=== PATIENT | male | born 1955 | race Caucasian/White ===

== ENCOUNTER 2021-04-10 10:29 | Outpatient (CLI) | payer MEDICARE, SELFPAY ==
--- NOTE | ~2021-04-10 | US_ITS ---
EXAMINATION: US aorta [facility] DATE: 04/10/2021 10:57 INDICATION: Abdominal aortic aneurysm screening. Risk factor of obesity and atherosclerosis. TECHNIQUE: Grayscale, color Doppler, and pulsed Doppler images of the aorta and common iliac arteries were obtained. COMPARISON: None. FINDINGS: The proximal aorta measures 2.1 cm. The mid aorta measures 2.2 cm. The distal aorta measures 1.7 cm. The right common iliac artery measures 1.1 cm. The left common iliac artery measures 1.1 cm. IMPRESSION: 1. Normal caliber abdominal aorta. Reviewed, dictated and finalized at location A.
--- NOTE | 2021-04-10 11:14 | ECG_ITS ---
Measurements Intervals [place] Rate: 61 P: 16 MT: 191 QRS: 87 QRSD: 102 T: 69 QT: 389 QTc: 395 Interpretive Statements SINUS RHYTHM INCOMPLETE RIGHT BUNDLE BRANCH BLOCK BORDERLINE ECG Electronically Signed On 04-10-2021 11:39:29 CDT by Todd Moore D.O.
== END 2021-04-10 10:30 | disposition home or self-care (01) ==
PROVIDERS: PCP Family Medicine; Visit Provider Family Medicine
DX: Z13.6 Encounter for screening for cardiovascular disorders (principal); Z87.891 Personal history of nicotine dependence; I45.10 Unspecified right bundle-branch block
CPT/HCPCS: 76706; 93005

== ENCOUNTER 2022-06-25 08:15 | Outpatient (CLI) | payer MEDICARE, SELFPAY ==
--- NOTE | ~2022-06-25 | NM_ITS ---
EXAMINATION: NM nuvia stress w perfusion DATE: 06/25/2022 10:52 INDICATION: Dyspnea TECHNIQUE: Rest images were obtained following intravenous administration of 9.3 mCi Tc99m tetrofosmi n (Myoview). The patient was infused intravenously with Lexiscan (Regadenoson). Then, 28.4 mCi Tc99m tetrofosmin (Myoview) was administered intravenously, and stress images were obtained in supine posit ion. Repeat post stress images were obtained in prone position. Data was reconstructed into short axi s and horizontal and vertical long axis SPECT images. Gated SPECT images were also obtained. COMPARISON: None. FINDINGS: There is some likely attenuation artifact along the anterior wall which significant change in position on the post stress images obtained in prone and supine positions. No perfusion defects in common between the prone post stress imaging to suggest ischemia or infarct. Mild increased left ve ntricular end-diastolic volume of 183 mm. Normal left ventricular wall motion and ejection fraction. Left ventricular ejection fraction measures 60%. IMPRESSION: 1. Normal myocardial perfusion at rest and during stress. 2. Mild left ventricular enlargement with calculated end-diastolic volume of 183 mm. 3. Normal left ventricular wall motion and ejection fraction measuring 60%. Reviewed, dictated and finalized at location B. IMPRESSION: 1. Normal myocardial perfusion at rest and during stress. 2. Mild left ventricular enlargement with calculated end-diastolic volume of 18 3 mm. 3. Normal left ventricular wall motion and ejection fraction measuring 60%.
--- NOTE | 2022-06-25 08:48 | EST_ITS ---
Patient Info Name: Wing Torres Age: 66 years : 1955 Gender: Male Ht: 73 in Wt: 330 lbs BSA: 2.84 m2 Exam Date: 06/25/2022 9:39 AM Exam Location: [facility] Stress Patient Status: Outpatient Admit Date: 06/25/2022 Staff Ordering Physician: Viridiana Mcnally MD Attending Provider: Viridiana Mcnally MD Exercise Technologist: Mario Cameron RDCS, RT Exercise Physician: Todd Moore DO Exam Type: CA stress nuvia w NM Study Info A regadenoson stress test was performed. Summary 1. 1. Negative lexiscan stress test for ischemic ST changes by ECG criteria. 2. 2. Baseline hypertension. 3. 3. Nuclear scan to follow and will be reported separately. Please correlate with it. 4. 4. Patient informed of the above results. Protocol: Lexiscan Stress ECG Details Stage: REST Duration (min): 2 min : 33 sec HR (bpm): 57 SBP (mmHg): 143 DBP (mmHg): 78 Stage: REST Duration (min): 11 min : 52 sec HR (bpm): 60 SBP (mmHg): 143 DBP (mmHg): 78 Stage: STAGE 1 Duration (min): 1 min : 0 sec HR (bpm): 70 SBP (mmHg): 139 DBP (mmHg): 77 Stage: RECOVERY Duration (min): 1 min : 0 sec HR (bpm): 83 SBP (mmHg): 139 DBP (mmHg): 77 Stage: RECOVERY Duration (min): 2 min : 0 sec HR (bpm): 73 SBP (mmHg): 139 DBP (mmHg): 77 Stage: RECOVERY Duration (min): 3 min : 0 sec HR (bpm): 68 SBP (mmHg): 143 DBP (mmHg): 71 Stage: RECOVERY Duration (min): 3 min : 15 sec HR (bpm): 68 SBP (mmHg): 143 DBP (mmHg): 71 Rest HR: 60 bpm Peak HR: 85 bpm Rest Sys BP: 143 mmHg Peak Sys BP: 143 mmHg Max Pred HR: 154 bpm % Max Pred HR: 55 % Target HR: 131 bpm Max RPP: 12,155 bpm*mmHg Termination Reason: Completed protocol Cardiac Symptoms: Shortness of breath Total Time: 1 min : 0 sec Rest Phillips BP: 78 mmHg Peak Phillips BP: 71 mmHg Total Dose: 0.4 mg Resting ECG Sinus rhythm, IRBBB. Stress ECG No ST changes. Arrhythmias None. Report Signatures
== END 2022-06-25 08:16 | disposition home or self-care (01) ==
PROVIDERS: PCP Family Medicine; Visit Provider Family Medicine
DX: R06.09 Other forms of dyspnea (principal)
CPT/HCPCS: 78452; 93017; A9502; J2785

== ENCOUNTER 2022-07-01 10:34 | Outpatient (CLI) | payer MEDICARE, SELFPAY ==
--- NOTE | ~2022-07-01 | XR_ITS ---
EXAMINATION: XR chest 2V DATE: 07/01/2022 10:54 INDICATION: Intermittent shortness of breath TECHNIQUE: PA and lateral views of the chest are obtained. COMPARISON: None available FINDINGS: The lungs are free of acute opacities. No pleural effusion or pneumothorax. The cardiomedia stinal silhouette is normal. There are bridging osteophytes at multiple levels in the spine, consiste nt with diffuse idiopathic skeletal hyperostosis (DISH). IMPRESSION: 1. No acute cardiopulmonary abnormality. Reviewed, dictated and finalized at location A.
== END 2022-07-01 10:35 | disposition home or self-care (01) ==
PROVIDERS: PCP Family Medicine; Visit Provider Family Medicine
DX: R06.09 Other forms of dyspnea (principal)
CPT/HCPCS: 71046

== ENCOUNTER 2022-07-30 08:23 | Outpatient (CLI) | payer MEDICARE, SELFPAY ==
--- NOTE | 2022-07-30 08:48 | ECHO_ITS ---
Patient Info Name: Wing Torres Age: 66 years : 1955 Gender: Male Ht: 73 in Wt: 330 lbs BSA: 2.84 m2 HR: 62 bpm BP: 162 / 94 mmHg Technical Quality: Good Exam Date: 07/30/2022 9:20 AM Exam Location: [facility] Pulmonary Patient Status: Inpatient Admit Date: 07/30/2022 Staff Ordering Physician: Soheila Shell PA-C Conference Manager: Андрей Waldron RDCS Attending Provider: Soheila Shell PA-C Exam Type: CA echo doppler color flow Study Info Indications R06.02 - Shortness of breath Complete two-dimensional, color flow and Doppler transthoracic echocardiogram is performed. Summary 1. Complete two-dimensional, color flow and Doppler transthoracic echocardiogram is performed. 2. Left ventricular chamber dimension is normal. 3. Left ventricular systolic function is normal, estimated at 60-65%. 4. There is mildly increased left ventricular wall thickness. 5. The left ventricular diastolic function is abnormal. 6. E/e' 28 is significantly elevated. 7. Left atrial chamber dimension is severely enlarged. 8. There is moderate aortic valve sclerosis. 9. The mitral valve has moderately calcified annulus. Left Ventricle E/e' 28 is significantly elevated. Left ventricular chamber dimension is normal. Left ventricular systolic function is normal, estimated at 60-65%. There is mildly increased left ventricular wall thickness. The left ventricular diastolic function is abnormal. Right Ventricle Right ventricular chamber dimension is normal. Right ventricular systolic function is normal. Left Atria Left atrial chamber dimension is severely enlarged. Right Atria Right atrial chamber dimension is normal. Aortic Valve The aortic valve is trileaflet. There is moderate aortic valve sclerosis. There is no aortic valve stenosis. There is no aortic valve regurgitation. Pulmonic Valve There is no pulmonic regurgitation. Mitral Valve The mitral valve has moderately calcified annulus. There is no mitral valve stenosis. There is no mitral valve regurgitation. Tricuspid Valve There is no tricuspid valve regurgitation. Pericardium/Pleural There is no pericardial effusion. Inferior Vena Cava Normal inferior vena cava with >50% collapse upon inspiration consistent with normal right atrial pressure, 5 mmHg. Aorta The aortic root size at the sinus of Valsalva is normal. Left Ventricular Outflow Tract Name Value Normal LVOT 2D LVOT Diameter 2.2 cm LVOT Doppler LVOT Peak Gradient 8 mmHg LVOT Mean Gradient 5 mmHg LVOT VTI 34 cm LVOT VTI/AV VTI Ratio 1.2 LVOT Stroke Volume 134 ml LVOT CO 7.7 l/min LVOT CI 2.7 l/min/m2 Mitral Valve Name Value Normal MV Doppler
--- NOTE | 2022-07-30 12:22 | WPDPFTINT ---
PFT Procedure Performed PFT Procedure Performed Spirometry with Pre/Post Bronchodilator Plethysmography (Lung Vol) Diffusing Cap (DLCO) Flow Vol Loop PFT Interpretation This is a pulmonary function test with pre and post-bronchodilator spirometry, plethysmography and diffusing capacity. The test was performed and results interpreted in accordance with the 2019 and 2005 ATS/ERS Task Force guidelines respectively using the Global Lung Function Initiative-2012 reference equations. Patient demonstrated good effort and cooperation. Reproducibility criteria were met. The quality of the pre bronchodilator spirometry maneuver was Grade A and post bronchodilator spirometry maneuver was Grade A. Findings: Spirometry: the contour the inspiratory and expiratory flow tracing are normal. The pre bronchodilator FVC is 4.55 L, 94% predicted. The pre bronchodilator FEV1 is 3.12 L, 85% predicted. The pre bronchodilator FEV1: FVC ratio 69%. The post bronchodilator FVC is 4.52 L, representing 1% decrease. The post bronchodilator FEV1 is 3.31 L, representing a 6% increase. The post bronchodilator FEV1: FVC ratio 73%. Plethysmography: The total lung capacity is 7.51 L, 99% predicted. The functional residual capacity is 4.42 L, 110% predicted. The residual volume is 2.85 L, 113% predicted. Diffusing capacity: The diffusing capacity unadjusted for hemoglobin and carboxyhemoglobin is 28.0, 99% predicted. The diffusing capacity adjusted for alveolar volume is 4.96, 128% predicted. Impression: The spirometry is normal without evidence of an obstructive abnormality. There is no significant improvement after inhaling a single dose of albuterol. The lung volumes are normal. The diffusing capacity is normal. There are no prior studies for comparison
== END 2022-07-30 08:24 | disposition home or self-care (01) ==
LOC: ANHCARD 08:25
PROVIDERS: PCP Family Medicine; Visit Provider Physician Assistant
DX: R06.09 Other forms of dyspnea (principal)
CPT/HCPCS: 93306; 94060; 94726; 94729

== ENCOUNTER 2022-10-03 02:19 | Day surgery (SDC) | payer MEDICARE, SELFPAY ==
[2022-10-02 13:54] VITALS: BMI 43.6
[2022-10-03] VITALS (15 sets, daily range): BP systolic 105–133; BP diastolic 64–78; PULSE 55–70; RESP 12–18; TEMP 36.4–36.9; O2SAT 95–98; BMI 43.6
[2022-10-03 07:23] LABS: Basophils Absolute Auto 0.1 K/mm3 (0.0-0.1); Basophils Percent Auto 0.7 % (0.2-1.2); Eosinophils Absolute Auto 0.2 K/mm3 (0-0.3); Eosinophils Percent Auto 3.2 % (0-4.4); Hemoglobin 17.3 g/dL (14.0-18.0); Immature Granulocyte Absolute 0.02 K/mm3 (0.00-0.031); Immature Granulocyte Percent A 0.3 % (0-0.5); Lymphocytes Absolute Auto 2.11 K/mm3 (0.9-3.2); Lymphocytes Percent Auto 29.6 % (18.3-44.2); Mean Corpuscular HGB Conc 34.6 g/dl (32-36); Mean Corpuscular Hemoglobin 33.5 pg (26-34); Mean Corpuscular Volume 96.9 fl (80-100); Mean Platelet Volume 9.4 fl (7.4-10.4); Monocytes Absolute Auto 0.8 K/mm3 (0.1-0.6); Monocytes Percent Auto 10.5 % (2.6-8.5); Neutrophils Percent Auto 55.7 % (45.5-73.1); Platelet Count Result 224 k/mm3 (150-375); Red Blood Count 5.16 M/mm3 (4.6-6.20); Red Cell Distribution Width 11.9 % (11.5-14.5); White Blood Count 7.1 K/mm3 (4.5-10.0)
[2022-10-03 07:33] LABS: Prothrombin Time 13.1 Seconds (11.1-14.7)
[2022-10-03 07:37] LABS: Anion Gap 10 mmol/L (8-16); Blood Urea Nitrogen 17 mg/dL (9-20); Calcium 9.1 mg/dL (8.4-10.2); Carbon Dioxide 22 mmol/L (22-30); Chloride 106 mmol/L (98-107); Estimated CRCL calculation 93 ml/min; Estimated Glomerular Filt Rate > 60; Glucose 105 mg/dL (65-110); Sodium 138 mmol/L (137-145)
--- NOTE | 2022-10-03 08:43 | WPDHPUPDATE1 ---
History and Physical Update Update Date/Time: 10/03/22 08:43 History and Physical has been reviewed, including an updated exam of the patient. There are NO changes in the patient's condition. Risks, benefits, and alternatives have been discussed and questions answered. Patient agrees to proceed with procedure.
--- NOTE | 2022-10-03 08:44 | WPDMODSED ---
Moderate Sedation Note-Pt Data Patient Data Diagnosis: Stable angina, abnormal CT coronary angiogram Present Complaint: none Procedure to be performed/Plan: left heart catheterization with selective left and right coronary angiography with left ventriculography and hemodynamics Allergies Allergy/AdvReac Type Severity Reaction Status Date / Time No Known Allergies Allergy Verified 07/09/22 14:00 Home Medications Medication Instructions Recorded Confirmed Type amlodipine 5 mg tablet 5 mg PO DAILY #90 tabs 07/29/22 10/03/22 Rx lisinopril 5 mg tablet 5 mg PO DAILY 09/18/22 10/03/22 History esomeprazole magnesium 20 mg 20 mg PO DAILY 10/02/22 10/03/22 History capsule,delayed release (Nexium) Current Medications: Active Medications Sodium Chloride (Normal Saline Iv) 500 mls @ 100 mls/hr IV CONT .Q5H ANJALI Sedation/Anesthesia: No previous sedation/anesthesia problems (including family history). [facility] Past Medical History Medical History Complex sleep apnea syndrome Environmental allergies GERD without esophagitis Sleep disorder Family History Family History Mother Diabetes mellitus Father Asthma Family history of cardiovascular disease, Onset Age: 82 Other Family history of malignant neoplasm of breast in first degree relative Family history of malignant neoplasm of ovary Social History Social History Smoking status: Former smoker Smoking end date: 09/15/80 Alcohol intake: current Drinks per week: 15 Substance use: never Substance use type: does not use Living arrangements: alone Gender identity (if verbalized by the patient): Male Spiritual care concerns: No Mod Sed Physical Exam Physical Exam Pre Procedural Exam: Normal: Appearance, Eyes, Ears, Nose, Neck ( supple, normal range of motion), Throat ( posterior hypopharynx clear, nonerythematous), Airway ( normal anatomy, no obstruction), Lungs ( clear to auscultation bilaterally), Heart Size, Heart Rate, Heart Rhythm, Neuro Exam, Abdomen, Liver, Extremities and Skin Hours since solid foods: 12 Hours since liquid intake: 12 Mallampati Classification: class II Internal Medicine - PN: Obj Da Vital Signs Vital Signs: Vital Signs - 24 hr 10/03/22 07:15 Temperature 36.4 C L Pulse Rate 69 Respiratory Rate 15 Blood Pressure 130/68 Pulse Oximetry 98 Oxygen Delivery Room Air Meds/Results Medications: Active Medications Generic Name Dose Route Start Last Admin Trade Name Sasha PRN Reason Stop Dose Admin Sodium Chloride 500 mls @ 100 mls/hr 10/03/22 07:00 Normal Saline Iv IV CONT .Q5H ANJALI Labs 10/03/22 07:15 10/03/22 07:15 Labs: Laboratory Results - last 24 hr 10/03/22 10/03/22 10/03/22 07:14 07:15 07:15 WBC 7.1 RBC 5.16 Hgb 17.3 Hct 50.0 MCV 96.9 MCH 33.5 MCHC 34.6 RDW 11.9 Plt Count 224 MPV 9.4 Immature Gran % (Auto) 0.3 Neut % (Auto) 55.7 Lymph % (Auto) 29.6 Glenn % (Auto) 10.5 H Eos % (Auto) 3.2 Baso % (Auto) 0.7 Lymph # (Auto) 2.11 Glenn # (Auto) 0.8 H Eos # (Auto) 0.2 Baso # (Auto) 0.1 Abs Immat Gran (auto) 0.02 Absolute Neuts (auto) 4.0 Absolute Nucleated RBC 0.0 Nucleated RBC % 0.0 PT 13.1 INR 1.0 Sodium 138 Potassium 4.0 Chloride 106 Carbon Dioxide 22 Anion Gap 10 BUN 17 Creatinine 1.00 Estim Creat Clear Calc 93 Estimated GFR > 60 Glucose 105 Calcium 9.1 ASA Classification/Sedation ASA Classification/Sedation ASA Class: IV Emergent: No Risks: Risks, benefits and alternatives explained and patient/family accepted plan for sedation. Patient re-evaluated immediately prior to sedation.
--- NOTE | 2022-10-03 09:58 | PM.OP ---
Procedure Note - Brief Procedure Note - Brief Date of procedure: 10/03/22 Pre-op diagnosis: Abnormal CTA, Angina stable angina, abnormal CT coronary angiogram Procedure performed: left heart catheterization with selective left and right coronary angiography with left ventriculography and hemodynamics Description of procedure: BRIEF HISTORY OF PRESENT ILLNESS: Patient is a pleasant 66-year-old male morbid obesity, hypertension, SURAJ on ASV, history of remote tobacco abuse with complaints of progressive fatigue, exertional dyspnea and chest discomfort who underwent noninvasive ischemic evaluation which did not reveal reversible ischemia with preserved EF yet given ongoing symptoms was referred for CT coronary angiogram which revealed greater than 75% proximal LAD stenosis. Given persistence of his symptoms he was then referred for coronary angiography for delineation of his coronary anatomy. PROCEDURES PERFORMED: 1. Left heart catheterization 2. Selective left and right coronary angiography 3. Left ventriculography and hemodynamics 4. Moderate/conscious sedation administration CATHETERS UTILIZED: Left coronary system- 5 Marshallese JL4 catheter Right coronary system- 5 Marshallese JR4 catheter Left ventriculography and hemodynamics- 5 Marshallese angled pigtail catheter PROCEDURE IN DETAIL: After verbal and written informed consent was obtained the patient, risks, benefits, and alternatives explained in detail the patient agreed to proceed with the plan of care as outlined above. The patient was subsequently brought to the cardiac catheterization lab, placed on the cardiac catheterization table, and prepped and draped in the usual sterile fashion. Utilizing approximately 19cc of 1% subcutaneous Lidocaine, the right groin was then locally anesthetized. Utilizing the modified Seldinger technique, a 5 Marshallese arterial vascular access sheath was inserted in the right common femoral artery easily and without complications. Through this access, coronary angiography was subsequently obtained in multiple standard re-projections. Following this, a 5 Marshallese angled pigtail catheter was advanced retrograde across aortic valve into the cavity of the left ventricle. Left ventriculography was performed and pullback across aortic valve was subsequently recorded. The vascular access sheath and angiographic catheters were flushed before and after catheter exchanges. At the conclusion of the diagnostic portion of the procedure, all angiographic guidewires and catheters were removed and the 5 Marshallese arterial vascular access sheath was then pulled and satisfactory hemostasis was achieved using manual compression. There no complications noted at the conclusion of the diagnostic portion of the study. MODERATE SEDATION/ANESTHESIA ADMINISTRATION: Patient reports no prior problems with sedation/anesthesia. Please see pre-sedation noted for physical examination documentation. Sedation start time was 0848 and end time was 0931 for a total intra-service/procedure face-face time of 43 minutes. A total of 3 mg intravenous Versed and a total of 75 mcg intravenous Fentanyl in multiple divided doses was administered for moderate sedation. Moderate sedation was administered by qualified/certified observer Juana García RN under my supervision with intra-procedure [id number] observation and management throughout the entirety of the procedure. There were no other issues or complications and patient tolerated the procedure well. See post-anesthesia documentation. Surgeon: Layo Hernandez MD Estimated blood loss (mL): 10 Complications: No immediate complications Condition: Stable Disposition: Same day Findings: CORONARY ANGIOGRAPHY: The LEFT MAIN arose from the left coronary cusp and revealed a distal 95% stenosis extending into the ostial LAD and circumflex coronary arteries. LEFT ANTERIOR DESCENDING ARTERY: Moderate caliber vessel 95% ostial stenosis tapering to 50%
[2022-10-03] MEDS: ASPIRIN 81 MG CHEWABLE TABLET PO (11:31)
== END 2022-10-03 14:25 | disposition home or self-care (01) ==
PROVIDERS: PCP Family Medicine; Visit Provider Internal Medicine Cardiovascular Disease
PROC: 4A023N7 Measurement of Cardiac Sampling and Pressure, Left Heart, Percutaneous Approach (ICD-10-PCS; CPT 93452; principal; 2022-10-03 08:30)
DX: I25.10 Atherosclerotic heart disease of native coronary artery without angina pectoris (principal); R93.1 Abnormal findings on diagnostic imaging of heart and coronary circulation; R07.89 Other chest pain; K21.9 Gastro-esophageal reflux disease without esophagitis; G47.30 Sleep apnea, unspecified; I11.9 Hypertensive heart disease without heart failure; E78.2 Mixed hyperlipidemia; G47.33 Obstructive sleep apnea (adult) (pediatric); E66.01 Morbid (severe) obesity due to excess calories; Z68.41 Body mass index [BMI] 40.0-44.9, adult; Z87.891 Personal history of nicotine dependence
CPT/HCPCS: 36415; 80048; 85025; 85610; 93458; A9270; C1887; C1894; J1644; J2250; J3010; J7040

== ENCOUNTER 2022-12-23 13:00 | Inpatient (IN) | payer MEDICARE, SELFPAY ==
[2022-12-23] VITALS (13 sets, daily range): BP systolic 115–193; BP diastolic 65–111; PULSE 88–102; RESP 16–24; TEMP 36.3–36.8; O2SAT 94–98; BMI 37.7
--- NOTE | ~2022-12-23 | XR_ITS ---
Portable chest x-ray Comparison: 07/01/2022 Clinical History: Fever, shortness of breath Findings: Moderate to large left pleural effusion is present. Right lung clear. Cardiomediastinal s ilhouette is, status post median sternotomy. Bones and soft tissues are unremarkable. Impression: Moderate to large left pleural effusion. Reviewed, dictated and finalized at location . Impression: Moderate to large left pleural effusion.
--- NOTE | ~2022-12-23 | XR_ITS ---
Portable chest x-ray Comparison: 12/23/2022 Clinical History: Pleural effusion Findings: Moderate left pleural effusion is present. There are central congestive changes. Right yessi g otherwise clear. Cardiomediastinal silhouette is stable. Bones and soft tissues are unremarkable. Impression: Moderate left pleural effusion with central congestive changes. Reviewed, dictated and finalized at location . Impression: Moderate left pleural effusion with central congestive changes.
--- NOTE | 2022-12-23 13:03 | ECG_ITS ---
Measurements Intervals [place] Rate: 96 P: 103 IA: 183 QRS: 6 QRSD: 84 T: 151 QT: 347 QTc: 441 Interpretive Statements SINUS RHYTHM POSSIBLE LEFT ATRIAL ENLARGEMENT LOW QRS VOLTAGE IN EXTREMITY LEADS POSSIBLE RIGHT VENTRICULAR CONDUCTION DELAY ] CANNOT RULE OUT ANTERIOR MYOCARDIAL INFARCTION , PROBABLY OLD ABNORMAL ECG COMPARED TO ECG 04/10/2021 11:20:48 CANNOT RULE OUT ANTERIOR INFARCTION Electronically Signed On 12-23-2022 17:05:09 CDT by Layo Hernandez M.D.
[2022-12-23 13:22] LABS: Basophils Absolute Auto 0.1 K/mm3 (0.0-0.1); Basophils Percent Auto 0.6 % (0.2-1.2); Eosinophils Absolute Auto 0.1 K/mm3 (0-0.3); Eosinophils Percent Auto 1.4 % (0-4.4); Hematocrit 43.9 % (42.0-52.0); Immature Granulocyte Absolute 0.03 K/mm3 (0.00-0.031); Immature Granulocyte Percent A 0.4 % (0-0.5); Lymphocytes Absolute Auto 2.05 K/mm3 (0.9-3.2); Lymphocytes Percent Auto 25.5 % (18.3-44.2); Mean Corpuscular HGB Conc 31.9 g/dl (32-36); Mean Corpuscular Hemoglobin 31.1 pg (26-34); Mean Corpuscular Volume 97.6 fl (80-100); Monocytes Percent Auto 12.8 % (2.6-8.5); Neutrophils Absolute Auto 4.8 K/mm3 (1.3-6.7); Neutrophils Percent Auto 59.3 % (45.5-73.1); Platelet Count Result 252 k/mm3 (150-375); Red Cell Distribution Width 13.9 % (11.5-14.5); White Blood Count 8.1 K/mm3 (4.5-10.0)
[2022-12-23 13:35] LABS: INR 1.2; Partial Thromboplastin Time 28.3 SECONDS (22.3-36.8); Prothrombin Time 14.4 Seconds (11.1-14.7)
[2022-12-23 13:36] LABS: Alanine Aminotransferase 41 U/L (6-50); Albumin Level 4.2 g/dL (3.5-5.1); Alkaline Phosphatase 117 U/L (38-126); Anion Gap 9 mmol/L (8-16); Aspartate Amino Transferase 35 U/L (17-59); Blood Urea Nitrogen 11 mg/dL (9-20); Calcium 8.9 mg/dL (8.4-10.2); Carbon Dioxide 26 mmol/L (22-30); Chloride 103 mmol/L (98-107); Estimated Glomerular Filt Rate 55; Glucose 117 mg/dL (65-110); Sodium 138 mmol/L (137-145)
[2022-12-23] MEDS: IPRATROPIUM BR 0.02% INH SOLN 0.5 MG/2.5 ML VIAL INHALATION (13:45)
[2022-12-23] MEDS: ALBUTEROL SULFATE NEB 2.5 MG/3 ML INH INHALATION ×2 (13:45→20:37)
[2022-12-23 13:48] LABS: NT Pro B Type Natriuretic Pept 1650 pg/mL (19.9-100); Troponin I 0.018 ng/mL (0.000-0.034)
[2022-12-23 13:58] LABS: Influenza A QL RT-PCR Negative (Negative); Influenza B QL RT-PCR Negative (Negative); RSV RNA, RT-PCR Negative (Negative); SARS-CoV-2 RNA PCR Negative
[2022-12-23] MEDS: FUROSEMIDE INJ 40 MG/4 ML VIAL IV PUSH (14:05)
--- NOTE | 2022-12-23 14:23 | ED.SOB ---
HPI - SOB/Dyspnea General Chief Complaint: Shortness of Breath/Dyspnea Stated Complaint: SOB Time Seen by Provider: 12/23/22 13:11 Source: patient Mode of arrival: ambulatory Limitations: no limitations History of Present Illness HPI Narrative: 67-year-old with a history of CAD s/p CABG 10 weeks ago, SURAJ on CPAP here with complaints of shortness of breath for last 3 days. Patient states that he did extremely well after surgery was on vacation got back 3 days ago and ever since then has been having cough and shortness of breath. Patient states that last night he was unable to breathe however he put his CPAP on and was able to sleep. He states cough is productive mostly mucoid in nature and he also had a low-grade fever. He denied any chest pain. 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 Related Data Home Medications Medication Instructions Recorded Confirmed lisinopril 5 mg tablet 5 mg PO DAILY 09/18/22 10/03/22 esomeprazole magnesium 20 mg 20 mg PO DAILY 10/02/22 10/03/22 capsule,delayed release (Nexium) Allergies Allergy/AdvReac Type Severity Reaction Status Date / Time No Known Allergies Allergy Verified 12/23/22 13:06 Review of Systems Review of Systems: All systems reviewed & are unremarkable except as noted in HPI and below Constitutional: Constitutional: Reports no additional constitutional complaints Eyes: Eyes: Reports no additional eye complaints ENT: Reports system reviewed and no additional complaints, except as documented Cardiovascular: Cardiovascular: Reports no additional cardiovascular complaints Respiratory: Respiratory: Reports as per HPI Gastrointestinal: Gastrointestinal: Reports no additional gastrointestinal complaints Musculoskeletal: Musculoskeletal: Reports no additional musculoskeletal complaints Neurologic: Reports system reviewed and no additional complaints, except as documented Psychiatric: Psychiatric: Reports no additional psychiatric complaints [facility] Past Medical History Medical History Complex sleep apnea syndrome Environmental allergies GERD without esophagitis Sleep disorder Family History Family History Mother Diabetes mellitus Father Asthma Family history of cardiovascular disease, Onset Age: 82 Other Family history of malignant neoplasm of breast in first degree relative Family history of malignant neoplasm of ovary Social History Social History Smoking status: Former smoker Smoking end date: 09/15/80 Alcohol intake: current Drinks per week: 15 Substance use: never Substance use type: does not use Living arrangements: alone Occupation/Education: retired Gender identity (if verbalized by the patient): Male Spiritual care concerns: No Exam Narrative: GENERAL: Well-appearing, well-nourished, and in no acute distress. HEAD: Normocephalic, atraumatic. EYES: PERRLA and EOMI. NECK: Supple. CHEST: No respiratory distress, bilateral crackles and wheeze HEART: Regular rate and rhythm. No murmur heard. Normal peripheral pulses. ABDOMEN: Soft, nontender, nondistended, normal active bowel sounds. EXTREMITIES: Normal range of motion. Has 1-2+ edema. SKIN: Warm, dry, no rash. NEURO: No focal deficits. Alert and oriented x3. PSYCH: Normal mood and affect. Course Course Emergency Course: Patient did give 1 nebulizer treatment obtain cardiac work-up and chest x-ray history of large pleural effusion on the left did give IV Lasix 40 mildly grams. Will admit to the hospitalist consult cardiology. Vital Signs Vital signs: Vital Signs Pulse Rate 102 H 12/23/22 13:03 Respiratory Rate 24 H 12/23/22 13:03 Blood Pressure 193/111 H 12/23/22 13:03 Pulse Oximetry 96 12/23/22 13:03 Oxygen Delivery Room Air 12/23/22 13:03 Pulse Rate 91
--- NOTE | 2022-12-23 18:26 | ADMGEN ---
This patient, Wing Torres, was admitted to IMU Room 231-01 on 12/23/22 at 1810. Patient/family oriented to hospital policies and general routines including ID bracelet, bed and alarms, visiting hours, pain management, procedures, bathroom and other care routines, personal items, smoking policy, room service/diet, and visiting hours. Information on how to activate the Rapid Response Team has been discussed. Patient/Family are encouraged to report perceived risks to care and to ask questions if they do not understand what they are told or what they should do.
[2022-12-23 18:53] LABS: Troponin I 0.016 ng/mL (0.000-0.034)
--- NOTE | 2022-12-23 20:42 | PM.IMHP ---
H&P: HPI History of Present Illness Date/Time: 12/23/22 20:42 Chief Complaint: Shortness of breath Narrative: This is a 67-year-old male patient with a history of coronary artery disease. The patient had a 2 vessel CABG approximately 10 weeks ago at [facility]. He typically sees Dr. Hernandez. The patient stated that he had a cardiac catheterization 1st and then was sent to [facility] for CABG. The patient stated that he has been having shortness of breath for last 3 days. The patient recently went to [facility] on vacation. The patient did not follow a strict diet and also drink more alcohol than usual. The patient stated that he was having difficulty breathing when lying flat. However he has sleep apnea and was able to sleep with the CPAP on. Patient has had a thin secretions when he coughs. He denies any nausea vomiting or diarrhea. He has no fever chills. The patient was started on Plavix approximally 10 weeks ago after his surgery. Chest x-ray was read as moderate to large left pleural effusion. He was unable to have a thoracentesis today because he is currently on Plavix. The patient stated that he did have some fluid drained from his lung at [facility]. He stated he believes it was a thoracentesis. He stated the drained about 300 cc from the the pleural space postop CABG. The patient history of congestive heart failure. He denies having an echo. However it was noted that that he did have an echo on 10/07/2022 which was technically difficult study with limited views. He was noted to have great to diastolic dysfunction and EF approximately 64%. The patient was given Lasix and and neb treatment. The patient was admitted to observation status on date of service of 12/23/2022. Review of Systems Review of Systems: All systems reviewed & are unremarkable except as noted in HPI and below Constitutional: Constitutional: Reports as per HPI and Reports no additional constitutional complaints Eyes: Eyes: Reports as per HPI and Reports no additional eye complaints ENT: Reports system reviewed and no additional complaints, except as documented and Reports Normal hearing present Cardiovascular: Cardiovascular: Reports no additional cardiovascular complaints Respiratory: Respiratory: Reports no additional respiratory complaints and Reports no additional respiratory complaints Gastrointestinal: Gastrointestinal: Reports as per HPI and Reports no additional gastrointestinal complaints Musculoskeletal: Musculoskeletal: Reports no additional musculoskeletal complaints Integumentary/Breasts: Skin/Breast: Reports system reviewed and no additional complaints, except as docu and Reports as per HPI Neurologic: Reports system reviewed and no additional complaints, except as documented, Reports as per HPI and Reports Normal hearing present Psychiatric: Psychiatric: Reports no additional psychiatric complaints and Reports as per HPI Endocrine: Endocrine: Reports no additional endocrine complaints Hematologic/Lymphatic: Hematologic/Lymphatic: Reports no additional hematologic/lymphatic complaints Allergic/Immunologic: Allergic/Immunologic: Reports no additional allergic/immunologic complaints FORMERLY [facility], [facility] Past Medical History Medical History (Updated 12/23/22 @ 14:29 by Kyle Dominguez MD) Complex sleep apnea syndrome Environmental allergies GERD without esophagitis Sleep disorder Surgical History Surgical History (Updated 12/24/22 @ 01:03 by Lorin Guzman NP) S/P CABG x 2 Family History Family History Mother Diabetes mellitus Father Family history of cardiovascular disease, Onset Age: 82 Asthma Sibling Family history of malignant neoplasm of breast in first degree relative Family history of malignant neoplasm of ovary Social History Social History (Updated 12/24/22 @ 01:04 by Lorin Guzman NP) Social History: The patient is and li
[2022-12-23 21:49] LABS: Troponin I 0.016 ng/mL (0.000-0.034)
[2022-12-24] VITALS (22 sets, daily range): BP systolic 111–143; BP diastolic 69–91; PULSE 74–98; RESP 16–22; TEMP 36–36.7; O2SAT 95–99
--- NOTE | 2022-12-24 | ECHO_ITS ---
Patient Info Name: Wing Torres Age: 67 years : 1955 Gender: Male Ht: 76 in Wt: 294 lbs BSA: 2.72 m2 HR: 87 bpm BP: 131 / 76 mmHg Heart Rhythm: Sinus Rhythm Technical Quality: Fair Exam Date: 12/24/2022 11:14 AM Exam Location: [facility] Card Pulmonary Patient Status: Inpatient Admit Date: 12/23/2022 Staff Ordering Physician: Kyle Dominguez MD Bombsight Specialist: Carmenza Wilde RDCS Attending Provider: Yossi Salgado MD Exam Type: CA echo dop color flow w con Study Info Indications - chf, pleural effusion Complete two-dimensional, color flow and Doppler transthoracic echocardiogram is performed with contrast to opacify the left ventricle and to improve the deliniation of the left ventricle endocardial borders. Contrast/Agitated Saline Contrast/Ag. Saline: Definity Amount: 3.00 ml Administered By: Carmenza Wilde RDCS Existing IV Access: Yes IV Access Condition: patent with no signs of infiltration Summary 1. Technically difficult study. Definity contrast administered. 2. Left ventricular chamber dimension is normal. 3. Left ventricular systolic function is normal, estimated at 65-70%. 4. There is mildly increased left ventricular wall thickness. 5. The left ventricular diastolic function is grade I diastolic dysfunction. 6. There is trace mitral valve regurgitation. 7. There is no aortic valve stenosis. 8. There is trace tricuspid valve regurgitation. 9. No pulmonary hypertension, estimated pulmonary arterial systolic pressure is 12 mmHg. 10. Large left pleural effusion. Left Ventricle Left ventricular chamber dimension is normal. Left ventricular systolic function is normal, estimated at 65-70%. There is mildly increased left ventricular wall thickness. The left ventricular diastolic function is grade I diastolic dysfunction. Technically difficult study. Definity contrast administered. Right Ventricle Right ventricular chamber dimension is normal. Right ventricular systolic function is normal. Left Atria Left atrial chamber dimension is normal. Right Atria Right atrial chamber dimension is normal. Aortic Valve The aortic valve is not well visualized. There is no aortic valve stenosis. There is no aortic valve regurgitation. Pulmonic Valve The pulmonic valve is not well visualized. There is trace pulmonic regurgitation. 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 There is mild mitral valve stenosis. There is trace mitral valve regurgitation. The mitral valve annulus is mildly calcified. Tricuspid Valve The tricuspid valve leaflets are normal. There is trace tricuspid valve regurgitation. No pulmonary hypertension, estimated pulmonary arterial systolic pressure is 12 mmHg. Pericardium/Pleural The pericardium appears not well visualized. There is no pericardial effusion. Large left pleural effusion. Inferior Vena Cava Normal inferior vena cava with >50% collapse upon inspiration consistent with normal right atrial pressure, 5 mmHg. Aorta The aortic root size at the sinus of Valsalva is normal. There is mild aortic atherosclerosis. Left Ventricular Outflow Tract Name Value Normal LVOT 2D
[2022-12-24] MEDS: IPRATROPIUM BR 0.02% INH SOLN 0.5 MG/2.5 ML VIAL INHALATION ×3 (02:30→20:30)
[2022-12-24] MEDS: ALBUTEROL SULFATE NEB 2.5 MG/3 ML INH INHALATION ×3 (02:30→20:30)
[2022-12-24 05:50] LABS: Basophils Percent Auto 0.6 % (0.2-1.2); Eosinophils Absolute Auto 0.1 K/mm3 (0-0.3); Hematocrit 39.4 % (42.0-52.0); Hemoglobin 12.4 g/dL (14.0-18.0); Immature Granulocyte Absolute 0.02 K/mm3 (0.00-0.031); Immature Granulocyte Percent A 0.3 % (0-0.5); Lymphocytes Absolute Auto 1.59 K/mm3 (0.9-3.2); Lymphocytes Percent Auto 24.3 % (18.3-44.2); Mean Corpuscular HGB Conc 31.5 g/dl (32-36); Mean Corpuscular Hemoglobin 31.1 pg (26-34); Mean Corpuscular Volume 98.7 fl (80-100); Mean Platelet Volume 8.9 fl (7.4-10.4); Monocytes Absolute Auto 0.8 K/mm3 (0.1-0.6); Monocytes Percent Auto 12.1 % (2.6-8.5); Neutrophils Percent Auto 60.7 % (45.5-73.1); Platelet Count Result 195 k/mm3 (150-375); Red Blood Count 3.99 M/mm3 (4.6-6.20); White Blood Count 6.5 K/mm3 (4.5-10.0)
[2022-12-24 05:59] LABS: Alanine Aminotransferase 35 U/L (6-50); Albumin Level 3.7 g/dL (3.5-5.1); Alkaline Phosphatase 90 U/L (38-126); Anion Gap 6 mmol/L (8-16); Aspartate Amino Transferase 30 U/L (17-59); Bilirubin,Total 0.6 mg/dL (0.2-1.3); Blood Urea Nitrogen 14 mg/dL (9-20); Calcium 8.7 mg/dL (8.4-10.2); Carbon Dioxide 31 mmol/L (22-30); Chloride 102 mmol/L (98-107); Estimated CRCL calculation 113 ml/min; Estimated Glomerular Filt Rate > 60; Glucose 94 mg/dL (65-110); Magnesium 2.1 mg/dL (1.6-2.3); Potassium 3.6 mmol/L (3.4-5.0); Sodium 139 mmol/L (137-145)
[2022-12-24 06:00] LABS: Lactic Acid Reflex 0.8 mmol/L (0.7-2.0)
[2022-12-24] MEDS: ATORVASTATIN 40 MG TABLET 80 MG PO (08:16)
[2022-12-24] MEDS: FUROSEMIDE INJ 40 MG/4 ML VIAL IV PUSH ×2 (08:16→15:41)
[2022-12-24] MEDS: POTASSIUM CHLORIDE 20 MEQ TABLET.ER PO (08:17)
[2022-12-24] MEDS: ASPIRIN 81 MG ENTERIC TABLET PO (08:17)
[2022-12-24] MEDS: PANTOPRAZOLE 40 MG TABLET PO (08:17)
[2022-12-24] MEDS: PERFLUTREN LIPID MICROSPHERES 1.5 ML VIAL DILUTED TO 10 ML TOTAL VOLUME IV PUSH (11:55)
--- NOTE | 2022-12-24 12:09 | PM.IMPN ---
Progress Note: A&P Assessment and Plan (1) Pleural effusion on left: Code(s): J90 - Pleural effusion, not elsewhere classified Status: Acute Assessment and Plan: Cardiology has been consulted. The patient is unable to received a thoracentesis at this time because he is on Plavix. The patient was started on Plavix 10 weeks ago. Continue with IV Lasix. Repeat echo with ejection fraction 65-70% grade 1 diastolic dysfunction no significant valvular abnormality. Large left-sided pleural effusion noted Continue with metoprolol (2) GERD without esophagitis: Code(s): K21.9 - Gastro-esophageal reflux disease without esophagitis Status: Acute Assessment and Plan: Continue Nexium (3) Complex sleep apnea syndrome: Code(s): G47.31 - Primary central sleep apnea Status: Acute Assessment and Plan: Continue with CPAP Plan Shortness of breath for last 3 days BNP elevated and chest x-ray with moderate to large pleural effusion cxr from 10/18/2022 CXR from 12/23/22 Moderate to large pleural effusion unable to be drained by IR due to Plavix on board. Could be related to congestive heart failure continue on diuresis cardiology on board. Recent echo with diastolic dysfunction and normal ejection fraction of 64%. Monitor chest x-ray improvement with aggressive diuresis will hold off on thoracentesis as this is most likely related to post CABG. If no interval change likely need to pursue thoracentesis Plavix currently placed on hold in case patient may need thoracentesis. Discussed with the phone engineer and will resume Plavix as we do not plan to pursue thoracentesis as inpatient # Hypertension resume home medication # coronary artery disease status post CABG x2 on 10/10/2022 # Alcohol use # Sleep apnea on CPAP # DVT prophylaxis Lovenox Subjective Date/time seen: 12/24/22 12:09 Interval history: Feeling much better. Nose leg swelling. Denies any chest pain. Minimal cough. Review of Systems Review of Systems: All systems reviewed & are unremarkable except as noted in HPI and below Exam Narrative: GENERAL: Well-appearing, well-nourished, and in no acute distress. HEAD: Normocephalic, atraumatic. EYES: PERRLA and EOMI. NECK: Supple. CHEST: No respiratory distress, diminished breath sound on left side HEART: Regular rate and rhythm.? No murmur heard.? Normal peripheral pulses. ABDOMEN: Soft, nontender, nondistended, normal active bowel sounds. EXTREMITIES: Normal range of motion.? Has 1-2+ edema. SKIN: Warm, dry, no rash. NEURO: No focal deficits.? Alert and oriented x3. PSYCH: Normal mood and affect. Objective Data Vital Signs Vital Signs: Vital Signs - 24 hr 12/23/22 13:03 12/23/22 13:12 12/23/22 13:16 Temperature Pulse Rate 102 H 96 Respiratory Rate 24 H Blood Pressure 193/111 H Pulse Oximetry 96 97 Oxygen Delivery Room Air Room Air 12/23/22 13:45 12/23/22 13:55 12/23/22 15:24 Temperature Pulse Rate 90 91 92 Respiratory Rate 18 18 18 Blood Pressure 123/83 Pulse Oximetry 98 Oxygen Delivery 12/23/22 17:08 12/23/22 17:49 12/23/22 18:18 Temperature 97.4 F L Pulse Rate 92 92 98 Respiratory Rate 18 16 18 Blood Pressure 125/81 121/79 137/82 Pulse Oximetry 94 97 98 Oxygen Delivery 12/23/22 18:10 12/23/22 20:35 12/23/22 20:45 Temperature Pulse Rate 88 90 Respiratory Rate 18 18 Blood Pressure Pulse Oximetry Oxygen Delivery Room Air 12/23/22 20:00 12/23/22 20:00 12/23/22 20:00 Temperature 98.2 F Pulse Rate 90 93 Respiratory Rate 22 H Blood Pressure 115/65 Pulse Oximetry 95 Oxygen Delivery Room Air 12/23/22 22:00 12/24/22 00:00 12/24/22 00:00 Temperature 97.5 F L Pulse Rate 98 89 Respiratory Rate 22 H Blood Pressure 111/69 Pulse Oximetry 97 Oxygen Delivery Room Air 12/24/22 00:00 12/24/22 02:00 12/24/22 02:30 Temperature Pulse Rate 98 83 93 Respiratory Rate
--- NOTE | 2022-12-24 12:20 | PM.CNCAR ---
Assessment and Plan Assessment and plan (1) Heart failure with preserved ejection fraction: Code(s): I50.30 - Unspecified diastolic (congestive) heart failure Status: Acute Assessment and Plan: Patient presents with 10-15 lb weight gain over 2 weeks with recurrence of large left pleural effusion, lower extremity edema, orthopnea, PND and low-grade fever most likely secondary to heart failure with preserved ejection fraction. Will review 2D echocardiogram and full when available but cursory review reveals EF at least 70%, technically difficult study. Increase Lasix to 40 mg IV b.i.d.. Accurate input and output, daily weight. Repeat chest x-ray in a.m.. Patient will likely require thoracentesis but in the interval will continue with diuresis and observe response. Patient apparently will need to be off clopidogrel for 5 days before Radiology will perform thoracentesis. Anticipate pursuit on an outpatient basis if necessary. The patient is feeling much better with IV diuresis plan to discharge home in next 24-48 hours to follow up as an outpatient with repeat chest x-ray with recommendation to follow thereafter. Patient verbalized understanding and agreed with plan of care. All questions answered to his satisfaction. We will need to see significant clinical improvement with regards activity anticipate will increase Lasix back to 40 mg twice daily an outpatient basis in the interval with potassium supplementation. Patient had mild mitral stenosis on echocardiogram previously not expected to have a clinical contribution at this time. (2) Pleural effusion on left: Code(s): J90 - Pleural effusion, not elsewhere classified Status: Acute Assessment and Plan: Consequent to recent CABG and acute on chronic heart failure with preserved ejection fraction exacerbated due to sodium and dietary indiscretions. We did discuss potential risk for pleural effusion as a complication postoperatively particularly if he undergoes repeat thoracentesis with recurrence in further more invasive management techniques. Do not expect will be able to do simply utilize diuresis until resolution of pleural effusion but I expect this may improve to an extent to where he is more comfortable. Nonetheless, it is likely he will require thoracentesis but I expect this may be considered outpatient basis as appropriate. Course, this plan will depend on patient's clinical response to therapy. Recommendations to follow. (3) CAD (coronary artery disease): Code(s): I25.10 - Atherosclerotic heart disease of [place] coronary artery without angina pectoris Status: Acute Assessment and Plan: No anginal symptoms, stable. Continue aggressive medical therapy with dual antiplatelet therapy with aspirin, clopidogrel, atorvastatin, and Toprol XL 25 mg daily. Patient was quite hypertensive at presentation although very well controlled subsequently. Will continue to monitor closely. (4) S/P CABG (coronary artery bypass graft): Code(s): Z95.1 - Presence of aortocoronary bypass graft Status: Acute Assessment and Plan: As above. Continue aggressive management for CAD. Patient was just about to begin cardiac rehabilitation this week. (5) Mixed hyperlipidemia: Code(s): E78.2 - Mixed hyperlipidemia Status: Acute (6) Complex sleep apnea syndrome: Code(s): G47.31 - Primary central sleep apnea Status: Acute History of Present Illness History of Present Illness Consult date/time: Date of service: 12/24/22 12:20 Requesting physician: Lorin Guzman NP Consult reason: congestive heart failure and Other (Left pleural effusion, status post CABG) Reason For Visit: Plueral Effusion Narrative: Patient is a very pleasant 67-year-old male with past medical history significant for hyperlipidemia, obesity, SURAJ on CPAP, and CAD with severe multivessel coronary disease status post 2 vessel CABG WEAVER to LAD
--- NOTE | 2022-12-24 12:21 | IVDEFINITY ---
Prior to administration of IV Definity the patient was educated on the risks and benefits of the imaging enhancing agent including potential adverse side effects. The patient verbalized understanding. Allergies were verified. No exclusion criteria were identified and at least one of the following inclusion criteria were met: 1) physician request, 2) patient technically difficult to image (per the [place] [employer]chocardi[employer] guidelines of two or more segments not discernable within the apical view), or 3) questionable left ventricular function. ?
[2022-12-25] VITALS (12 sets, daily range): BP systolic 115–134; BP diastolic 72–85; PULSE 67–96; RESP 18–22; TEMP 36.3–36.7; O2SAT 97–100
[2022-12-25] MEDS: ALBUTEROL SULFATE NEB 2.5 MG/3 ML INH INHALATION ×2 (02:02→09:34)
[2022-12-25] MEDS: IPRATROPIUM BR 0.02% INH SOLN 0.5 MG/2.5 ML VIAL INHALATION ×2 (02:02→09:34)
[2022-12-25 04:45] LABS: Basophils Percent Auto 0.5 % (0.2-1.2); Eosinophils Absolute Auto 0.3 K/mm3 (0-0.3); Eosinophils Percent Auto 3.2 % (0-4.4); Hematocrit 38.8 % (42.0-52.0); Hemoglobin 12.4 g/dL (14.0-18.0); Immature Granulocyte Absolute 0.02 K/mm3 (0.00-0.031); Immature Granulocyte Percent A 0.3 % (0-0.5); Lymphocytes Absolute Auto 2.03 K/mm3 (0.9-3.2); Lymphocytes Percent Auto 26.3 % (18.3-44.2); Mean Corpuscular Hemoglobin 30.6 pg (26-34); Mean Corpuscular Volume 95.8 fl (80-100); Mean Platelet Volume 9.1 fl (7.4-10.4); Monocytes Absolute Auto 0.8 K/mm3 (0.1-0.6); Monocytes Percent Auto 10.2 % (2.6-8.5); Neutrophils Absolute Auto 4.6 K/mm3 (1.3-6.7); Neutrophils Percent Auto 59.5 % (45.5-73.1); Platelet Count Result 197 k/mm3 (150-375); Red Blood Count 4.05 M/mm3 (4.6-6.20); Red Cell Distribution Width 13.9 % (11.5-14.5); White Blood Count 7.7 K/mm3 (4.5-10.0)
[2022-12-25 05:01] LABS: Alanine Aminotransferase 33 U/L (6-50); Albumin Level 3.7 g/dL (3.5-5.1); Alkaline Phosphatase 89 U/L (38-126); Anion Gap 7 mmol/L (8-16); Aspartate Amino Transferase 31 U/L (17-59); Bilirubin,Total 0.6 mg/dL (0.2-1.3); Blood Urea Nitrogen 12 mg/dL (9-20); Calcium 8.6 mg/dL (8.4-10.2); Carbon Dioxide 30 mmol/L (22-30); Chloride 101 mmol/L (98-107); Estimated CRCL calculation 113 ml/min; Estimated Glomerular Filt Rate > 60; Glucose 103 mg/dL (65-110); Magnesium 2.1 mg/dL (1.6-2.3); Potassium 3.5 mmol/L (3.4-5.0); Sodium 138 mmol/L (137-145)
[2022-12-25] MEDS: POTASSIUM CHLORIDE 20 MEQ TABLET.ER PO (09:05)
[2022-12-25] MEDS: CLOPIDOGREL BISULFATE 75 MG TABLET PO (09:05)
[2022-12-25] MEDS: ATORVASTATIN 40 MG TABLET 80 MG PO (09:05)
[2022-12-25] MEDS: PANTOPRAZOLE 40 MG TABLET PO (09:06)
[2022-12-25] MEDS: ASPIRIN 81 MG ENTERIC TABLET PO (09:06)
[2022-12-25] MEDS: FUROSEMIDE INJ 40 MG/4 ML VIAL IV PUSH (09:06)
[2022-12-25] MEDS: METOPROLOL SUCCINATE EXT REL 25 MG TABCR PO (10:29)
--- NOTE | 2022-12-25 14:55 | PM.DS ---
DS: Admitting Diagnosis Discharge Date 12/25/22 Admitting Diagnosis Shortness of breath DS: Discharge Diagnosis Discharge Diagnosis (1) Pleural effusion on left: Code(s): J90 - Pleural effusion, not elsewhere classified Status: Acute (2) Heart failure with preserved ejection fraction: Code(s): I50.30 - Unspecified diastolic (congestive) heart failure Status: Acute (3) S/P CABG (coronary artery bypass graft): Code(s): Z95.1 - Presence of aortocoronary bypass graft Status: Acute (4) CAD (coronary artery disease): Code(s): I25.10 - Atherosclerotic heart disease of [place] coronary artery without angina pectoris Status: Acute (5) Mixed hyperlipidemia: Code(s): E78.2 - Mixed hyperlipidemia Status: Acute (6) Complex sleep apnea syndrome: Code(s): G47.31 - Primary central sleep apnea Status: Acute (7) GERD without esophagitis: Code(s): K21.9 - Gastro-esophageal reflux disease without esophagitis Status: Acute DS: Summary Hospital Course Reason for hospitalization: 67yo male with SURAJ, CAD with recent CABG here for shortness of breath. Please see H&P for details. Hospital Course: Patient underwent CABG on 10/10/2022 that was complicated left pleural effusion status post thoracentesis with 300 mL fluid removed prior to discharge. Patient was doing well up until about 2 weeks ago when, on vacation, he had dietary indiscretion and 10-15 lb weight gain. He had noted increasing evidence of fluid retention prior to going on vacation however. His doctor had recently decreased his Lasix 40mg from b.i.d. down to daily. Chest x-ray on admission showed [id number] left pleural effusion. BNP was 1650. Troponin was negative x3. Echo showing EF 65-70%, Grade I diastolic dysfunction. EKG normal sinus rhythm and probable incomplete Rt BBB but can not rule out old AMI. Electrolytes and liver function tests were normal. TSH was normal. Influenza, RSV and COVID all were negative. Patient was started on IV Lasix. He had good diuresis. He was on Plavix so we were unable to proceed with a left thoracentesis. Repeat chest x-ray shows moderate left pleural effusion with central congestive changes. Patient feels well. He is requesting discharge. Discussed with Cardiology with plans to increases home Lasix dose back to b.i.d. dosing and hold Plavix. Repeat chest x-ray in a week and consider thoracentesis. Patient overall did well and was able to be discharged home on 12/25/2022 Status at Discharge Cognitive/behavioral status at discharge: Stable Time Spent with Patient Time attestation: Total time spent providing and/or coordinating discharge services: 35 minutes Time spent: Greater than 30 minutes Exam Narrative: AF 97.6 134/81 77 22 100% ra Gen - NARD Chest - decreasd BS mid and lower lung field. nml RR CV - RRR S1/S2 Abd - Soft, NT/ND, Positive BS Ext - trace pedal edema Psych - Nml mood and affect Skin - Warm and dry DS: Data Data Completed and Pending Labs on day of discharge: Labs from last 24 hours 12/25/22 12/25/22 04:30 04:30 WBC 7.7 RBC 4.05 L Hgb 12.4 L Hct 38.8 L MCV 95.8 MCH 30.6 MCHC 32.0 RDW 13.9 Plt Count 197 MPV 9.1 Immature Gran % (Auto) 0.3 Neut % (Auto) 59.5 Lymph % (Auto) 26.3 [place] % (Auto) 10.2 H Eos % (Auto) 3.2 Baso % (Auto) 0.5 Lymph # (Auto) 2.03 [place] # (Auto) 0.8 H Eos # (Auto) 0.3 Baso # (Auto) 0.0 Abs Immat Gran (auto) 0.02 Absolute Neuts (auto) 4.6 Absolute Nucleated RBC 0.0 Nucleated RBC % 0.0 Sodium 138 Potassium 3.5 Chloride 101 Carbon Dioxide 30 Anion Gap 7 L BUN 12 Creatinine 0.80 Estim Creat Clear Calc 113 Estimated GFR > 60 Glucose 103 Calcium 8.6 Magnesium 2.1 Total Bilirubin 0.6 AST 31 ALT 33 Alkaline Phosphatase 89 Total Protein 7.[address]
--- NOTE | 2022-12-25 15:35 | PM.PNCARD ---
Progress Note: A&P Assessment and Plan (1) Heart failure with preserved ejection fraction: Code(s): I50.30 - Unspecified diastolic (congestive) heart failure Status: Acute Assessment and Plan: Clinically improved with IV diuresis nearly 2.3 L negative since admission. Patient feels he is nearing his baseline. No more edema. States he is ready go home. Chest x-ray with slight noted improvement still with least moderate left pleural effusion. Increase Lasix to 40 mg twice daily. Patient stable for discharge home follow up as an outpatient. CHF counseling. He will call with weight gain worsening symptoms or new concerns. Chest x-ray in 1 week post discharge. Follow-up with me as an outpatient in 3 weeks. I suspect he will require thoracentesis but with additional diuresis will see if things improve to the point this may not be necessary. All questions answered to the patient's satisfaction. He agrees with plan of care. (2) Pleural effusion on left: Code(s): J90 - Pleural effusion, not elsewhere classified Status: Acute Assessment and Plan: Consequent to recent CABG and acute on chronic heart failure with preserved ejection fraction exacerbated due to sodium and dietary indiscretions. As above. Further outpatient evaluation. (3) CAD (coronary artery disease): Code(s): I25.10 - Atherosclerotic heart disease of [place] coronary artery without angina pectoris Status: Acute Assessment and Plan: No anginal symptoms, stable. Continue aggressive medical therapy with dual antiplatelet therapy with aspirin,atorvastatin, and Toprol XL 25 mg daily. Patient was quite hypertensive at presentation although very well controlled subsequently. Will continue to monitor closely. -he is now proximally 3 months post CABG and not present with an NSTEMI preoperatively. Therefore will continue aspirin 81 mg daily and discontinue clopidogrel at discharge. This will also allow us to proceed with thoracentesis if necessary as an outpatient. We discussed this change. Patient agrees. (4) S/P CABG (coronary artery bypass graft): Code(s): Z95.1 - Presence of aortocoronary bypass graft Status: Acute Assessment and Plan: As above. Continue aggressive management for CAD. Patient was just about to begin cardiac rehabilitation this week. (5) Mixed hyperlipidemia: Code(s): E78.2 - Mixed hyperlipidemia Status: Acute Assessment and Plan: Continue atorvastatin 80 mg at bedtime. (6) Complex sleep apnea syndrome: Code(s): G47.31 - Primary central sleep apnea Status: Acute Assessment and Plan: CPAP. Subjective Date/time seen: Date of service: 12/25/22 15:35 Follow-up for pleural effusion, shortness of breath, heart failure with preserved ejection fraction Patient willing much better. States he is ambulating without significant difficulty. Still occasional cough nonproductive no fevers or chills. No chest pain. Able ambulate without shortness of breath, dizziness. No more edema. Able to lie flat. States he is ready go home. Review of Systems Review of Systems: Remainder of the review of systems is otherwise negative aside from that noted in the HPI. All systems reviewed & are unremarkable except as noted in HPI and below Constitutional: Constitutional: Reports as per HPI and Reports no additional constitutional complaints Eyes: Eyes: Reports as per HPI and Reports no additional eye complaints ENT: Reports system reviewed and no additional complaints, except as documented and Reports as per HPI Cardiovascular: Cardiovascular: Reports as per HPI and Reports no additional cardiovascular complaints Respiratory: Respiratory: Reports as per HPI and Reports no additional respiratory complaints Gastrointestinal: Gastrointestinal: Reports as per HPI and Reports no additional gastrointestinal complaints Genitourinary: Genitourinary: Reports no
== END 2022-12-25 15:37 | disposition home or self-care (01) | DRG 291 ==
LOC: ANHED 14:29 → ANHIMU 17:31
PROVIDERS: Emergency Medicine; Internal Medicine; Nurse Practitioner; Admitting Provider Family Medicine; Emergency Provider Family Medicine; PCP Family Medicine; Visit Provider Internal Medicine
DX: I11.0 Hypertensive heart disease with heart failure (principal); I50.33 Acute on chronic diastolic (congestive) heart failure; I25.10 Atherosclerotic heart disease of native coronary artery without angina pectoris; K21.9 Gastro-esophageal reflux disease without esophagitis; G47.31 Primary central sleep apnea; Z20.822 Contact with and (suspected) exposure to COVID-19; Z79.02 Long term (current) use of antithrombotics/antiplatelets; Z87.891 Personal history of nicotine dependence; Z95.1 Presence of aortocoronary bypass graft; Z79.82 Long term (current) use of aspirin
CPT/HCPCS: 36415; 71045; 80053; 83605; 83735; 83880; 84443; 84484; 85025; 85610; 85730; 87637; 93005; 94640; 96374; 96375; 96376; 99285; A9270; C8929; G0378; J1940; Q9957

== ENCOUNTER 2023-04-09 08:30 | Outpatient (RCR) | payer MEDICARE, SELFPAY | END 2023-04-09 16:46 | disposition home or self-care (01) | LOC: ANHCPREHAB 08:30 | PROVIDERS: PCP Family Medicine; Visit Provider Internal Medicine Cardiovascular Disease | DX: Z95.1 Presence of aortocoronary bypass graft (principal) | CPT/HCPCS: 93798 ==